=== PATIENT | female | born 1955 | race Caucasian/White ===

== ENCOUNTER 2017-09-20 15:04 | Observation (INO) | payer OTHER, SELFPAY ==
[2017-09-20] VITALS (9 sets, daily range): BP systolic 115–154; BP diastolic 64–83; PULSE 64–79; RESP 15–20; TEMP 36.2–36.8; O2SAT 95–99; BMI 32.5; BMI 30.3
--- NOTE | 2017-09-20 15:23 | EKG12_ITS ---
Test Reason : CP/PALPS Blood Pressure : / mmHG Vent. Rate : 071 BPM Atrial Rate : 071 BPM P-R Int : 214 ms QRS Dur : 096 ms QT Int : 400 ms P-R-T Axes : 023 -24 -21 degrees QTc Int : 434 ms Sinus rhythm with 1st degree A-V block Otherwise normal ECG Confirmed by KARLY VITAL, SHENA ([id number]), material expeditor ELLE LYNNE ([id number] on 09/22/2017 1:55:33 PM Referred By: SHARMILA
--- NOTE | 2017-09-20 15:30 | RAD_ITS ---
STUDY: X-RAY CHEST REASON FOR EXAM: Female, 61 years old. Palpitations. Chest pressure and chest pain. TECHNIQUE: Single AP portable view of the chest. COMPARISON: None. FINDINGS: The lungs are clear and expanded. There is no demonstrated pleural abnormality. Normal size heart. Normal mediastinum and sebas. Normal visualized pulmonary arteries. There is atherosclerotic tortuosity of the aortic arch and descending thoracic aorta. Normal visualized thoracic spine. Normal visualized ribs, clavicles, and shoulders. There is no demonstrated abnormality of the visualized soft tissue structures of the upper abdomen. RAD/Chest 1 View (Portable) IMPRESSION: No acute abnormality is seen. Electronically Signed: Waylon Ahmadi MD at 15:45 EST Tel [phone], Service support ,
[2017-09-20] MEDS: Aspirin 81 MG TAB.CHEW 324 MG PO (15:38)
[2017-09-20 15:53] LABS: Absolute Lymphocyte Count 2.38 X10^3/ul (0.83-4.51); Absolute Neutrophil Count 3.4 X10^3/uL (2.0-7.7); Basophil# 0.01 X10^3/uL; Basophil% 0.2 % (0-1); Eosinophil# 0.17 X10^3/uL; Eosinophils% 2.6 % (0-5); Hematocrit 41.1 % (37-47); Hemoglobin 13.5 g/dl (12.0-15.0); Lymphocyte # 2.38 X10^3/ul (4.0); Lymphocyte % 36.9 % (19-41); Mean Corp Hgb Conc 32.8 g/gl (32-36); Mean Corpuscular Hgb 29.7 pg (27.0-32.0); Mean Corpuscular Volume 90.3 fL (81-99); Mean Platelet Vol. 9.6 fl (6.2-12.0); Monocyte# 0.47 X10^3/uL; Monocyte% 7.3 % (0-10); Neutrophil # 3.41 X10^3/uL (2.7-7.7); Neutrophil % 52.8 % (47-70); POSITIVE COUNT NO; POSITIVE DIFFERENTIAL NO; POSITIVE MORPHOLOGY NO; Platelet Count 282 K/mm3 (150-450); RBC Distribution Width SD 45.9 fl (35.1-43.9); Red Blood Count 4.55 M/mm3 (4.2-5.4); White Blood Count 6.5 K/mm3 (4.4-11.0)
--- NOTE | 2017-09-20 16:11 | ED.DCSUM_ITS ---
- ER Visit Summary Date of Service: 09/20/17 Chief Complaint: abnormal EKG History of Present Illness: The patient is a 61 F presents from PCP office with concern of EKG changes. She states she has been having intermittent episodes of chest pressure since Wednesday. She denies dyspnea, diaphoresis. She has multiple cardiac risk factors including borderline diabetes, hypertension, hyperlipidemia, family history of early heart disease, former smoker. She denies PE/DVT risk factors. Physical Examination: Vitals are stable. Patient is afebrile. Alert no acute distress. HEENT exam is unremarkable. Neck is supple. Lungs are clear and equal bilaterally. Heart is regular rate and rhythm. Abdomen is soft nontender nondistended. Extremities are unremarkable. Skin is warm and dry. No focal neurologic deficit. Remainder of exam is unremarkable. Emergency Department Course and Treatment: She was given aspirin on arrival. She is pain-free in the emergency department. EKG is sinus rhythm rate of 71 with T-wave inversion V3 and V4 which is similar to previous. Chest x-ray shows no acute process. CBC, chemistries unremarkable. Troponin is negative. Patient remains pain-free in the emergency department. Discussed with the hospitalist for observation. Disposition: Observation Impression: Chest pain This note was generated with [employer] dictation software. It may contain incorrect words, spelling, and punctuation that were not noted in review of the chart prior to signing ED Disposition - Plan for ED Patient: Chief Complaint: Chest Pain Referrals: Care Physician,No Primary [Primary Care Provider] -
[2017-09-20 16:24] LABS: Anion Gap 7 (5-15); BUN 17 mg/dL (7-18); BUN/Creat Ratio 21.7 RATIO (10-20); Calcium,Total 9.3 mg/dL (8.5-10.1); Chloride 104 mmol/L (98-107); Creatinine, Serum 0.78 mg/dL (0.55-1.02); EST Glomerular Filtration Rate 79 mL/min (>60); Est Glom Filt Rate - Afr Amer 96 mL/min (>60); Estimated Creatinine Clearance 67.29 ml/min; Glucose 99 mg/dL (74-106); Potassium 3.8 mmol/L (3.5-5.1); Sodium Level 139 mmol/L (136-145)
--- NOTE | 2017-09-20 17:42 | PCM.HP.STD ---
<Jim Welch - Last Filed: 09/20/17 17:42> Problem List (1) Chest pressure Status: Acute (2) HTN (hypertension) Status: Chronic (3) Anxiety Status: Chronic (4) Essential tremor Status: Chronic (5) GERD (gastroesophageal reflux disease) Status: Chronic (6) HLD (hyperlipidemia) Status: Chronic History of Present Illness Date of Admission: 09/20/17 Chief Complaint: Chest pressure The patient is a 61 year old F with a hx of HTN, HLD, anxiety, essential tremor, and acid reflux who presents to the ED with chief complaint of chest pressure. She first noticed this on wednesday morning when she woke up. She described it as a midsternal chest pressure that would come and go throughout the day and each time it would last only a few minutes. She also described a sensation of palpitations when these episodes come on, and she would feel hot flashes, however she denies diaphoresis, nausea, vomiting, or radiation. She did note that the pressure would be relieved by lifting up her breasts. The symptoms had resolved last night, however she was very anxious and went to her PCP today and had an EKG with nonspecific t wave changes so she was sent to the ER. In the ER she has nonspecific changes, negative troponin, negative CXR, and elevated blood pressure. She has no prior hx of heart disease, no stents. She has not had a stress test in many years. She does not think that she can do a treadmill stress test as she has chronic back pain that is severe with exertion. [] Past Medical History Past Medical History (Chronic Problems): Chronic Problems HTN (hypertension) (Chronic) Anxiety (Chronic) Essential tremor (Chronic) GERD (gastroesophageal reflux disease) (Chronic) HLD (hyperlipidemia) (Chronic) Allergies codeine Adverse Reaction (Verified 09/20/17 15:12) Other STEROIDS Adverse Reaction (Uncoded 09/20/17 15:12) Other Home Medications: Ambulatory Orders Medication Instructions Recorded ALPRAZolam [Xanax] 0.25 mg PO TID PRN PRN 09/20/17 Celecoxib [Celebrex] 200 mg PO DAILY PRN PRN 09/20/17 Cholecalciferol (VIT D3) [Vitamin 1,000 unit PO BID 09/20/17 D] Famotidine [Pepcid] 20 mg PO BID 09/20/17 Fish Oil/[place]-3/E/FA/B6-B12 1 each PO BID 09/20/17 [Cardiovid Plus Softgel] Hydrochlorothiazide [Hctz] 12.5 mg PO DAILY 09/20/17 Metoprolol Tartrate [Lopressor 25 mg PO BID 09/20/17 (Beta Aric)] Rosuvastatin Calcium [Crestor] 1 tab PO MOWEFR 09/20/17 Sertraline HCl [Zoloft] 25 mg PO DAILY 09/20/17 Ubidecarenone/Vit E Acetate [Co 1 each PO MOWEFR 09/20/17 Q-10 100 mg Softgel] Vitamin E 400 units PO DAILY 09/20/17 Psychiatric History: Anxiety [employer] History: No pertinent [employer] history Lives: Spouse/ Significant Other Smoking Status: Former smoker Tobacco Use: Non-smoker Alcohol: None Drugs: None - *Family History Maternal History Items: Heart Disease - she may have had an [place], she is not sure Paternal History Items: Heart Disease, Stroke Sibling History Items: Heart Disease - [place], - - pulmonary fibrosis Review of Systems Constitutional: Denies: Chills, Fever, Weight Change HEENT: Denies: Head Aches, Sinus Congestion, Sinus Drainage Cardiovascular: Reports: Chest Pain, Chest Pressure, Palpitations. Denies: Chest Tightness, Edema, Heaviness, Light Headedness, Orthopnea, Paroxysmal Noc. Dyspnea, Syncope Respiratory: Denies: Cough, Pleuritic Pain, Shortness of Breath, Shortness of breath at rest, Shortness of breath upon exertion, Sputum production, Wheezing Gastrointestinal: Denies: Abdominal Pain, Diarrhea, Nausea, Vomiting Genitourinary: Denies: Dysuria Musculoskeletal: Reports: Back Pain. Denies: Joint Pain, Joint Tenderness Skin: Denies: Lesions, Rash, Wounds Neurological: Denies: Numbness, Tingling, Focal weakness Psychiatric: Reports: Anxiety. Denies: Depression, Homicidal Ideations, Suicidal Ideations Hematologic/ Lymphatic: Denies: Easy Bruising, Easy Bleeding VTE Information - Inpt Only VTE Present on Admission: No VTE Mechan Device Prophylaxis: SCD's VTE Pharm Prophylaxis ordered?: Yes Patient Problems: Active and Suspected Problems Chest pressure (Acute) - Physical Exam General: Alert, Oriented x3, Cooperative HEENT: Atraumatic, PERRLA, EOMI, Normocephalic Neck: Supple, No JVD, Negative Carotid Bruits Lungs: Clear to auscultation, Normal air movement Cardiovascular: Regular rate, No murmurs Abdomen: Bowel Sounds Present, Soft, Non Tender Extremities: No edema, Capillary Refill Less than 3 Seconds Skin: No rashes, No breakdown Musculoskeletal: No Tenderness to Palpation of Joints or Extremities Neurological: Cranial nerves II-XII grossly intact Psych/Mental Status: Normal Affect, Appropriate, Alert and oriented to time, place, person, mood and affect Vital Signs Temp Pulse Resp BP Pulse Ox 98.2 F 67 15 152/83 H 97 09/20/17 15:05 09/20/17 17:19 09/20/17 17:19 09/20/17 17:19 09/20/17 17:19 Oxygen Delivery Method Room Air Assessment/Plan Active and Suspected Problems Chest pressure (Acute) 1. Atypical chest pain / pressure - midsternal, with associated hot flashes, and palpitations,relieved by relieving weight of breasts. Intermittent x 3 days lasting several minutes at a time. Pt with significant anxiety. Nonspecific t wave changes on EKG. Risk factors include age, htn, hld, + family hx, prior smoker. CXR, trop, blood work normal. Will matinatin on telemetry, cycle enzymes, repeat EKG in AM, check TSH, and get chemical stress test in AM. 2. HTN - trend, may need home meds adjusted 3. HLD - continue statin 4. Reports that she monitors her blood sugar for borderline diabetes, but has never been diagnosed with DM, and that her blood sugar nonfasting in low 100's and drops low at home. Glucose 99 in ER. Will defer further workup. 5. Anxiety - continue home meds 6. Essential Tremor - reports prescribed xanax for this. DVT ppx: lovenox This patient was seen by Jim Welch PA-C under the supervision of Doctor Malik. <Sheldon Gan - Last Filed: 09/20/17 22:12> History of Present Illness Seen and examined No history of cardiac cath in the past. Patient admitted with midsternal chest pain. She has slipped disc history and not comfortable walking on treadmill. [] Past Medical History Allergies codeine Adverse Reaction (Verified 09/20/17 15:12) Other STEROIDS Adverse Reaction (Uncoded 09/20/17 15:12) Other - Physical Exam General: Alert, Oriented x3, Cooperative HEENT: Atraumatic, PERRLA, EOMI, Normocephalic Neck: Supple, No JVD, Negative Carotid Bruits Lungs: Clear to auscultation, Normal air movement Cardiovascular: Regular rate, Regular Rhythm, Normal S1, Normal S2, No murmurs Abdomen: Non Tender Extremities: No edema, Capillary Refill Less than 3 Seconds Skin: No rashes, No breakdown Musculoskeletal: No Tenderness to Palpation of Joints or Extremities, Arthritic Changes Neurological: Cranial nerves II-XII grossly intact Psych/Mental Status: Normal Affect, Appropriate Vital Signs Temp Pulse Resp BP Pulse Ox 97.9 F 79 16 115/64 95 09/20/17 20:42 09/20/17 21:25 09/20/17 20:42 09/20/17 20:42 09/20/17 20:42 Oxygen Delivery Method Room Air Weight: 193 lb 9.6 oz Body Mass Index (BMI) 30.3 Laboratory Tests Past 24 Hrs 09/20/17 20:12 Troponin I < 0.02 TSH 1.85 Assessment/Plan This patient was seen in conjunction with Jim COLEY. I have independently interviewed and examined the patient and reviewed pertinent history, examination findings, laboratory and plan of management. I have reviewed the note and agree with the documented findings with the few additional points. In brief, patient is admitted for atypical chest pain. Started on ACS protocol. Lexiscan stress test tomorrow morning if troponins are negative. I have discussed my assessment with Jim COLEY and orders have been reviewed. Code Visit OBSV E&M: 64421 Initial observation care L3
--- NOTE | 2017-09-20 17:52 | HP.PCM_ITS ---
<Jim Welch - Last Filed: 09/20/17 17:42> Problem List (1) Chest pressure Status: Acute (2) HTN (hypertension) Status: Chronic (3) Anxiety Status: Chronic (4) Essential tremor Status: Chronic (5) GERD (gastroesophageal reflux disease) Status: Chronic (6) HLD (hyperlipidemia) Status: Chronic History of Present Illness Date of Admission: 09/20/17 Chief Complaint: Chest pressure The patient is a 61 year old F with a hx of HTN, HLD, anxiety, essential tremor , and acid reflux who presents to the ED with chief complaint of chest pressure. She first noticed this on wednesday morning when she woke up. She described it as a midsternal chest pressure that would come and go throughout the day and each time it would last only a few minutes. She also described a sensation of palpitations when these episodes come on, and she would feel hot flashes, however she denies diaphoresis, nausea, vomiting, or radiation. She did note that the pressure would be relieved by lifting up her breasts. The symptoms had resolved last night, however she was very anxious and went to her PCP today and had an EKG with nonspecific t wave changes so she was sent to the ER. In the ER she has nonspecific changes, negative troponin, negative CXR, and elevated blood pressure. She has no prior hx of heart disease, no stents. She has not had a stress test in many years. She does not think that she can do a treadmill stress test as she has chronic back pain that is severe with exertion. [] Past Medical History Past Medical History (Chronic Problems): Chronic Problems HTN (hypertension) (Chronic) Anxiety (Chronic) Essential tremor (Chronic) GERD (gastroesophageal reflux disease) (Chronic) HLD (hyperlipidemia) (Chronic) Allergies codeine Adverse Reaction (Verified 09/20/17 15:12) Other STEROIDS Adverse Reaction (Uncoded 09/20/17 15:12) Other Home Medications: Ambulatory Orders Medication Instructions Recorded ALPRAZolam [Xanax] 0.25 mg PO TID PRN PRN 09/20/17 Celecoxib [Celebrex] 200 mg PO DAILY PRN PRN 09/20/17 Cholecalciferol (VIT D3) [Vitamin 1,000 unit PO BID 09/20/17 D] Famotidine [Pepcid] 20 mg PO BID 09/20/17 Fish Oil/[place]-3/E/FA/B6-B12 1 each PO BID 09/20/17 [Cardiovid Plus Softgel] Hydrochlorothiazide [Hctz] 12.5 mg PO DAILY 09/20/17 Metoprolol Tartrate [Lopressor 25 mg PO BID 09/20/17 (Beta Aric)] Rosuvastatin Calcium [Crestor] 1 tab PO MOWEFR 09/20/17 Sertraline HCl [Zoloft] 25 mg PO DAILY 09/20/17 Ubidecarenone/Vit E Acetate [Co 1 each PO MOWEFR 09/20/17 Q-10 100 mg Softgel] Vitamin E 400 units PO DAILY 09/20/17 Psychiatric History: Anxiety [employer] History: No pertinent [employer] history Lives: Spouse/ Significant Other Smoking Status: Former smoker Tobacco Use: Non-smoker Alcohol: None Drugs: None - *Family History Maternal History Items: Heart Disease - she may have had an [place], she is not sure Paternal History Items: Heart Disease, Stroke Sibling History Items: Heart Disease - [place], - - pulmonary fibrosis Review of Systems Constitutional: Denies: Chills, Fever, Weight Change HEENT: Denies: Head Aches, Sinus Congestion, Sinus Drainage Cardiovascular: Reports: Chest Pain, Chest Pressure, Palpitations. Denies: Chest Tightness, Edema, Heaviness, Light Headedness, Orthopnea, Paroxysmal Noc. Dyspnea, Syncope Respiratory: Denies: Cough, Pleuritic Pain, Shortness of Breath, Shortness of breath at rest, Shortness of breath upon exertion, Sputum production, Wheezing Gastrointestinal: Denies: Abdominal Pain, Diarrhea, Nausea, Vomiting Genitourinary: Denies: Dysuria Musculoskeletal: Reports: Back Pain. Denies: Joint Pain, Joint Tenderness Skin: Denies: Lesions, Rash, Wounds Neurological: Denies: Numbness, Tingling, Focal weakness Psychiatric: Reports: Anxiety. Denies: Depression, Homicidal Ideations, Suicidal Ideations Hematologic/ Lymphatic: Denies: Easy Bruising, Easy Bleeding VTE Information - Inpt Only VTE Present on Admission: No VTE Mechan Device Prophylaxis: SCD's VTE Pharm Prophylaxis ordered?: Yes Patient Problems: Active and Suspected Problems Chest pressure (Acute) - Physical Exam General: Alert, Oriented x3, Cooperative HEENT: Atraumatic, PERRLA, EOMI, Normocephalic Neck: Supple, No JVD, Negative Carotid Bruits Lungs: Clear to auscultation, Normal air movement Cardiovascular: Regular rate, No murmurs Abdomen: Bowel Sounds Present, Soft, Non Tender Extremities: No edema, Capillary Refill Less than 3 Seconds Skin: No rashes, No breakdown Musculoskeletal: No Tenderness to Palpation of Joints or Extremities Neurological: Cranial nerves II-XII grossly intact Psych/Mental Status: Normal Affect, Appropriate, Alert and oriented to time, place, person, mood and affect Vital Signs Temp Pulse Resp BP Pulse Ox 98.2 F 67 15 152/83 H 97 09/20/17 15:05 09/20/17 17:19 09/20/17 17:19 09/20/17 17:19 09/20/17 17:19 Oxygen Delivery Method Room Air Assessment/Plan Active and Suspected Problems Chest pressure (Acute) 1. Atypical chest pain / pressure - midsternal, with associated hot flashes, and palpitations,relieved by relieving weight of breasts. Intermittent x 3 days lasting several minutes at a time. Pt with significant anxiety. Nonspecific t wave changes on EKG. Risk factors include age, htn, hld, + family hx, prior smoker. CXR, trop, blood work normal. Will matinatin on telemetry, cycle enzymes , repeat EKG in AM, check TSH, and get chemical stress test in AM. 2. HTN - trend, may need home meds adjusted 3. HLD - continue statin 4. Reports that she monitors her blood sugar for borderline diabetes, but has never been diagnosed with DM, and that her blood sugar nonfasting in low 100's and drops low at home. Glucose 99 in ER. Will defer further workup. 5. Anxiety - continue home meds 6. Essential Tremor - reports prescribed xanax for this. DVT ppx: lovenox This patient was seen by Jim Welch PA-C under the supervision of Doctor Malik. <Sheldon Gan - Last Filed: 09/20/17 22:12> History of Present Illness Seen and examined No history of cardiac cath in the past. Patient admitted with midsternal chest pain. She has slipped disc history and not comfortable walking on treadmill. [ ] Past Medical History Allergies codeine Adverse Reaction (Verified 09/20/17 15:12) Other STEROIDS Adverse Reaction (Uncoded 09/20/17 15:12) Other - Physical Exam General: Alert, Oriented x3, Cooperative HEENT: Atraumatic, PERRLA, EOMI, Normocephalic Neck: Supple, No JVD, Negative Carotid Bruits Lungs: Clear to auscultation, Normal air movement Cardiovascular: Regular rate, Regular Rhythm, Normal S1, Normal S2, No murmurs Abdomen: Non Tender Extremities: No edema, Capillary Refill Less than 3 Seconds Skin: No rashes, No breakdown Musculoskeletal: No Tenderness to Palpation of Joints or Extremities, Arthritic Changes Neurological: Cranial nerves II-XII grossly intact Psych/Mental Status: Normal Affect, Appropriate Vital Signs Temp Pulse Resp BP Pulse Ox 97.9 F 79 16 115/64 95 09/20/17 20:42 09/20/17 21:25 09/20/17 20:42 09/20/17 20:42 09/20/17 20:42 Oxygen Delivery Method Room Air Weight: 193 lb 9.6 oz Body Mass Index (BMI) 30.3 Laboratory Tests Past 24 Hrs 09/20/17 20:12 Troponin I < 0.02 TSH 1.85 Assessment/Plan This patient was seen in conjunction with Jim COLEY. I have independently interviewed and examined the patient and reviewed pertinent history, examination findings, laboratory and plan of management. I have reviewed the note and agree with the documented findings with the few additional points. In brief, patient is admitted for atypical chest pain. Started on ACS protocol. Lexiscan stress test tomorrow morning if troponins are negative. I have discussed my assessment with Jim COLEY and orders have been reviewed. Code Visit OBSV E&M: 79770 Initial observation care L3
[2017-09-20] MEDS: Metoprolol Tartrate 25 MG Tablet PO (21:25)
[2017-09-20 21:29] LABS: Thyroid Stim Hormone (TSH) 1.85 uIU/mL (0.358-3.74)
[2017-09-20] MEDS: ALPRAZolam 0.25 MG Tablet PO (22:58)
[2017-09-21] VITALS (9 sets, daily range): BP systolic 109–137; BP diastolic 76; PULSE 63–83; RESP 14–18; TEMP 36.4–36.9; O2SAT 94–99
[2017-09-21] MEDS: Aspirin 81 MG TAB.CHEW PO (05:17)
--- NOTE | 2017-09-21 05:55 | EKG12_ITS ---
Test Reason : MORNING EKG Blood Pressure : / mmHG Vent. Rate : 062 BPM Atrial Rate : 062 BPM P-R Int : 232 ms QRS Dur : 100 ms QT Int : 418 ms P-R-T Axes : 063 -11 -22 degrees QTc Int : 424 ms Sinus rhythm with 1st degree A-V block ST & T wave abnormality, consider anterior ischemia Abnormal ECG When compared with ECG of 20-SEP-2017 15:11, MANUAL COMPARISON REQUIRED, DATA IS UNCONFIRMED Confirmed by KARLY VITAL, SHENA ([id number]), loan expeditor ELLE LYNNE ([id number]) on 09/22/2017 2:46:23 PM Referred By: KIET Confirmed By:SHENA BRANDT MD
[2017-09-21 07:40] LABS: International Normalized Ratio 1.1; Prothrombin Time (Protime)PT. 13.4 SECONDS (11.7-14.9)
[2017-09-21 07:41] LABS: Partial Thromboplast Time 32.9 Seconds (24.1-36.2)
[2017-09-21 08:00] LABS: Absolute Lymphocyte Count 2.75 X10^3/ul (0.83-4.51); Absolute Neutrophil Count 2.4 X10^3/uL (2.0-7.7); Basophil# 0.01 X10^3/uL; Basophil% 0.2 % (0-1); Eosinophil# 0.25 X10^3/uL; Eosinophils% 4.2 % (0-5); Hematocrit 40.3 % (37-47); Hemoglobin 13.1 g/dl (12.0-15.0); Lymphocyte # 2.75 X10^3/ul (4.0); Lymphocyte % 46.1 % (19-41); Mean Corp Hgb Conc 32.5 g/gl (32-36); Mean Corpuscular Hgb 29.6 pg (27.0-32.0); Mean Corpuscular Volume 91.2 fL (81-99); Mean Platelet Vol. 10.1 fl (6.2-12.0); Monocyte# 0.51 X10^3/uL; Monocyte% 8.5 % (0-10); Neutrophil # 2.44 X10^3/uL (2.7-7.7); Neutrophil % 40.8 % (47-70); Platelet Count 292 K/mm3 (150-450); RBC Distribution Width SD 46.1 fl (35.1-43.9); Red Blood Count 4.42 M/mm3 (4.2-5.4)
[2017-09-21 08:05] LABS: POSITIVE COUNT NO; POSITIVE DIFFERENTIAL NO; POSITIVE MORPHOLOGY NO
[2017-09-21 08:34] LABS: Anion Gap 8 (5-15); BUN 17 mg/dL (7-18); BUN/Creat Ratio 25.9 RATIO (10-20); Calcium,Total 9.1 mg/dL (8.5-10.1); Chloride 106 mmol/L (98-107); Creatinine, Serum 0.66 mg/dL (0.55-1.02); EST Glomerular Filtration Rate 97 mL/min (>60); Est Glom Filt Rate - Afr Amer 117 mL/min (>60); Estimated Creatinine Clearance 85.94 ml/min; Glucose 94 mg/dL (74-106); Potassium 3.9 mmol/L (3.5-5.1); Sodium Level 142 mmol/L (136-145)
[2017-09-21] MEDS: HYDROCHLOROTHIAZIDE 12.5 MG CAPSULE PO (10:44)
[2017-09-21] MEDS: Sertraline 50 MG Tablet 25 MG PO (10:44)
[2017-09-21] MEDS: Metoprolol Tartrate 25 MG Tablet PO (10:44)
--- NOTE | 2017-09-21 11:23 | STRESSREP ---
Stress Test Report Pharmacologic myocardial perfusion stress test. 61-year-old lady with a history of chest pain. Stress protocol: Resting EKG demonstrates normal sinus rhythm with rate of 75 bpm. Resting blood pressure is 126/84 minute meters of mercury. 0.4 mg of regadenoson was infused per usual protocol followed by rapid intravenous saline flush injection. Continuous EKG monitoring was performed. The patient maintained sinus rhythm throughout the recording the maximum heart rate attained was 110 bpm which was 69% of the maximum predicted heart rate. The resting blood pressure is 126/84 with a final blood pressure 132/74. No clinical angina was noted. No arrhythmias were noted no ST changes were noted to suggest abnormal flow reserve. Myocardial perfusion protocol. 10.3 mCi of technetium 99m sestamibi was injected at rest. 0.4 mg of regadenoson was infused per usual protocol. At peak infusion 31.7 mCi of technetium 99m sestamibi was injected. Stress images were obtained. Stress and rest images were reconstructed and compared in the short axis vertical long and horizontal long axis. Gated images were also obtained. Perfusion SPECT analysis: Review of the stress images demonstrate normal uptake of tracer noted in all areas of the myocardium. The resting images similarly demonstrate normal uptake of tracer noted in all areas of the myocardium. No areas of reversibility are noted suggest ischemia no previous infarct is noted. Gated SPECT analysis. Gated ejection fraction is noted to be 84%. Conclusion: Normal pharmacologic myocardial perfusion stress test. Preserved ejection fraction.
--- NOTE | 2017-09-21 11:55 | DCINST_ITS ---
- Discharge Diagnoses Current Active Problems: Current Active and Chronic Problems HTN (hypertension) (Chronic) Anxiety (Chronic) Essential tremor (Chronic) Chest pressure (Acute) GERD (gastroesophageal reflux disease) (Chronic) HLD (hyperlipidemia) (Chronic) You will use the following diet at home:: Cardiac Your food should be the consistency of: Regular Your liquids should be the consistency of: Regular/Thin Discharge Activity: Return to Normal Activity Allergies/Adverse Reactions: Allergies codeine Adverse Reaction (Verified 09/20/17 15:12) Other STEROIDS Adverse Reaction (Uncoded 09/20/17 15:12) Other Medications to take at Discharge ALPRAZolam [Xanax] 0.25 mg PO TID PRN PRN 09/20/17 Celecoxib [Celebrex] 200 mg PO DAILY PRN PRN 09/20/17 Cholecalciferol (VIT D3) [Vitamin D3] 1,000 unit PO BID 09/20/17 Famotidine [Pepcid] 20 mg PO BID 09/20/17 Fish Oil/[place]-3/E/FA/B6-B12 [Cardiovid Plus Softgel] 1 each PO BID 09/20/17 Hydrochlorothiazide [Hctz] 12.5 mg PO DAILY 09/20/17 Metoprolol Tartrate [Lopressor (beta megan)] 25 mg PO BID 09/20/17 Rosuvastatin Calcium [Crestor] 1 tab PO MOWEFR 09/20/17 Sertraline HCl [Zoloft] 25 mg PO DAILY 09/20/17 Ubidecarenone/Vit E Acetate [Co Q-10 100 mg Softgel] 1 each PO MOWEFR 09/20/17 Vitamin E 400 units PO DAILY 09/20/17 Primary Care Physician: Care Physician,No Primary [Primary Care Provider] - Please follow up with your Primary Care Physician in: 1-2 weeks Proposed Discharge Date: 09/21/17
--- NOTE | 2017-09-21 12:50 | PCM.DC.SUM ---
Discharge Date and Diagnosis - Problem List Patient Problems: Active and Suspected Problems Chest pressure (Acute) Date of Admission: 09/20/17 Date of Discharge: 09/21/17 - Primary Discharge Diagnosis Active and Suspected Problems Chest pressure (Acute) - musculoskeletal Anxiety HTN Essential tremor HLD GERD - Secondary Discharge Diagnosis Chronic Problems HTN (hypertension) (Chronic) Anxiety (Chronic) Essential tremor (Chronic) GERD (gastroesophageal reflux disease) (Chronic) HLD (hyperlipidemia) (Chronic) Hospital Course and Treatment Imaging Results: RAD/Chest 1 View (Portable) IMPRESSION: No acute abnormality is seen. 09/21/17 05:55 Nuclear Stress Test - Chemical [NM] AM (NON MEDS) - negative for ischemia Operations: None Procedures: None, Stress test Summary of Care Provided: Physical exam on day of discharge: General: Resting comfortably NAD Psych: A/Ox3 normal affect HEENT: PEARRLA AT NC Neck: Supple NT CV: RRR no m/t/r/g/h Resp: CTA Abd: [id number] Soft NT no guarding or rigidity Ext: DP2+= no edema Skin: W/D normal turgor Lymph/Heme: No active bleeding or adenopathy Neuro: CN2-12 intact Hospital course: The patient is a 61 year old F who presented to the emergency room after having 3 days of off and on chest pressure in the midsternal region that was alleviated by taking pressure off her breasts. Is associated with some palpitations. Episodes would last several minutes before spontaneously resolving. She presented to her PCPs office who did an EKG with some nonspecific T-wave abnormality so she was sent to the ER. In the ER her EKG continued to have nonspecific changes, troponin was normal, chest x-ray was normal, she had somewhat elevated blood pressure otherwise normal vital signs. She is admitted to the hospital for chest pain workup. Repeat EKG was negative, no events on the monitor, troponin remained negative, stress test the following day was negative. Blood pressure improved without further intervention. She had no further chest pain and it was felt to be musculoskeletal in origin. No changes were made to her medications at this time. She was discharged home in stable condition and advised follow-up with her PCP in 1-2 weeks. This patient was seen by Jim Welch PA-C under the supervision of Doctor Stoddard. [] Discharge Diet: Low fat/ Low Cholesterol, 4000 mg Sodium Diet Discharge Activity: Return to Normal Activity Home Medications: Medications to take at Discharge ALPRAZolam [Xanax] 0.25 mg PO TID PRN PRN 09/20/17 Celecoxib [Celebrex] 200 mg PO DAILY PRN PRN 09/20/17 Cholecalciferol (VIT D3) [Vitamin D3] 1,000 unit PO BID 09/20/17 Famotidine [Pepcid] 20 mg PO BID 09/20/17 Fish Oil/[place]-3/E/FA/B6-B12 [Cardiovid Plus Softgel] 1 each PO BID 09/20/17 Hydrochlorothiazide [Hctz] 12.5 mg PO DAILY 09/20/17 Metoprolol Tartrate [Lopressor (beta megan)] 25 mg PO BID 09/20/17 Rosuvastatin Calcium [Crestor] 1 tab PO MOWEFR 09/20/17 Sertraline HCl [Zoloft] 25 mg PO DAILY 09/20/17 Ubidecarenone/Vit E Acetate [Co Q-10 100 mg Softgel] 1 each PO MOWEFR 09/20/17 Vitamin E 400 units PO DAILY 09/20/17 Primary Care Physician: Care Physician,No Primary [Primary Care Provider] - Please follow up with your Primary Care Physician in: 1-2 weeks Disposition: Home Minutes spent on discharge:: 35 Patient Condition:: Stable Meaningful Use Info Meaningful Use Diagnoses (Choose all that apply): None applicable
--- NOTE | 2017-09-21 12:54 | DS.PCM_ITS ---
Discharge Date and Diagnosis - Problem List Patient Problems: Active and Suspected Problems Chest pressure (Acute) Date of Admission: 09/20/17 Date of Discharge: 09/21/17 - Primary Discharge Diagnosis Active and Suspected Problems Chest pressure (Acute) - musculoskeletal Anxiety HTN Essential tremor HLD GERD - Secondary Discharge Diagnosis Chronic Problems HTN (hypertension) (Chronic) Anxiety (Chronic) Essential tremor (Chronic) GERD (gastroesophageal reflux disease) (Chronic) HLD (hyperlipidemia) (Chronic) Hospital Course and Treatment Imaging Results: RAD/Chest 1 View (Portable) IMPRESSION: No acute abnormality is seen. 09/21/17 05:55 Nuclear Stress Test - Chemical [NM] AM (NON MEDS) - negative for ischemia Operations: None Procedures: None, Stress test Summary of Care Provided: Physical exam on day of discharge: General: Resting comfortably NAD Psych: A/Ox3 normal affect HEENT: [place]ARR[place] AT NC Neck: Supple NT CV: RRR no m/t/r/g/h Resp: CTA Abd: [id number] Soft NT no guarding or rigidity Ext: DP2+= no edema Skin: W/D normal turgor Lymph/Heme: No active bleeding or adenopathy Neuro: CN2-12 intact Hospital course: The patient is a 61 year old F who presented to the emergency room after having 3 days of off and on chest pressure in the midsternal region that was alleviated by taking pressure off her breasts. Is associated with some palpitations. Episodes would last several minutes before spontaneously resolving. She presented to her PCPs office who did an EKG with some nonspecific T-wave abnormality so she was sent to the ER. In the ER her EKG continued to have nonspecific changes, troponin was normal, chest x-ray was normal, she had somewhat elevated blood pressure otherwise normal vital signs. She is admitted to the hospital for chest pain workup. Repeat EKG was negative , no events on the monitor, troponin remained negative, stress test the following day was negative. Blood pressure improved without further intervention. She had no further chest pain and it was felt to be musculoskeletal in origin. No changes were made to her medications at this time. She was discharged home in stable condition and advised follow-up with her PCP in 1-2 weeks. This patient was seen by Jim Welch PA-C under the supervision of Doctor Stoddard. [] Discharge Diet: Low fat/ Low Cholesterol, 4000 mg Sodium Diet Discharge Activity: Return to Normal Activity Home Medications: Medications to take at Discharge ALPRAZolam [Xanax] 0.25 mg PO TID PRN PRN 09/20/17 Celecoxib [Celebrex] 200 mg PO DAILY PRN PRN 09/20/17 Cholecalciferol (VIT D3) [Vitamin D3] 1,000 unit PO BID 09/20/17 Famotidine [Pepcid] 20 mg PO BID 09/20/17 Fish Oil/[place]-3/E/FA/B6-B12 [Cardiovid Plus Softgel] 1 each PO BID 09/20/17 Hydrochlorothiazide [Hctz] 12.5 mg PO DAILY 09/20/17 Metoprolol Tartrate [Lopressor (beta megan)] 25 mg PO BID 09/20/17 Rosuvastatin Calcium [Crestor] 1 tab PO MOWEFR 09/20/17 Sertraline HCl [Zoloft] 25 mg PO DAILY 09/20/17 Ubidecarenone/Vit E Acetate [Co Q-10 100 mg Softgel] 1 each PO MOWEFR 09/20/17 Vitamin E 400 units PO DAILY 09/20/17 Primary Care Physician: Care Physician,No Primary [Primary Care Provider] - Please follow up with your Primary Care Physician in: 1-2 weeks Disposition: Home Minutes spent on discharge:: 35 Patient Condition:: Stable Meaningful Use Info Meaningful Use Diagnoses (Choose all that apply): None applicable
== END 2017-09-21 12:54 | disposition home or self-care (01) ==
LOC: ED 15:56 → PCU 17:18
PROVIDERS: Family Medicine; Physician Assistant; Admitting Provider Internal Medicine; Emergency Provider Emergency Medicine; Visit Provider Internal Medicine
DX: R07.89 Other chest pain (principal); E78.5 Hyperlipidemia, unspecified; K21.9 Gastro-esophageal reflux disease without esophagitis; I10 Essential (primary) hypertension; G25.0 Essential tremor; R73.03 Prediabetes; F41.9 Anxiety disorder, unspecified; Z87.891 Personal history of nicotine dependence; Z82.49 Family history of ischemic heart disease and other diseases of the circulatory system; Z79.899 Other long term (current) drug therapy; R94.31 Abnormal electrocardiogram [ECG] [EKG]
CPT/HCPCS: 36415; 71045; 78452; 80048; 84443; 84484; 85025; 85610; 85730; 93005; 93017; 99218; 99285; A9500; A4216; G0378; J2785

== ENCOUNTER → 2017-12-31 09:39 | Outpatient (CLI) | payer OTHER, SELFPAY ==
--- NOTE | 2017-12-31 09:39 | DT_ITS ---
This patient was seen during an EMR downtime December 27, 2017 - January 03, 2018. This patient may have a combination of paper and electronic documentation or all paper documentation. All documentation is viewable within the e-chart portion of [facility] for each patient visit.
--- NOTE | 2017-12-31 09:42 | BI_ITS ---
MAMMOGRAPHY - BILATERAL SCREENING REASON FOR EXAM: Female, 62 years old. Routine annual screening examination. PERTINENT HISTORY: NO FM HX , GAIN 10#, RT EXC BX LATE , BILAT TENDERNESS TECHNIQUE: Digital bilateral breast keli (3D mammographic acquisition) in the CC and MLO projections. 2-D mediolateral oblique (MLO) and craniocaudad (CC) views of both breasts were obtained. CAD: Full Field Digital Mammography with Computer Added Detection was performed. COMPARISON: None. FINDINGS: Breast Composition: The breasts are heterogeneously dense, which may obscure small masses. There is a spiculated partially obscured mass at the medial aspect of the left breast seen on the CC view, probably located in the medial inferior quadrant, for which further evaluation by ultrasound would be recommended. There are no suspicious calcifications. No other significant abnormalities are identified. BI/SCREENING MAMM (CAD), BILAT IMPRESSION: Further imaging evaluation recommended, as described above. (E) ASSESSMENT CATEGORY: BIRADS Category 0: Incomplete. Need additional imaging evaluation. A letter regarding these results will be sent to the patient by the facility within 30 days. Approximately 10% of breast cancers are not detected by mammography. A normal mammogram should not delay biopsy of a clinically suspicious abnormality. [id number] Electronically Signed: Ifeoma Young MD at 14:24 EDT Tel , Service support ,
== END ==
PROVIDERS: Visit Provider Obstetrics & Gynecology
DX: Z12.31 Encounter for screening mammogram for malignant neoplasm of breast (principal)
CPT/HCPCS: 77063; 77067

== ENCOUNTER → 2018-01-10 08:17 | Outpatient (CLI) | payer OTHER, SELFPAY ==
--- NOTE | 2018-01-10 08:22 | US_ITS ---
STUDY: ULTRASOUND BREAST - LEFT REASON FOR EXAM: Female, 62 years old. Abnormal screening mammogram. TECHNIQUE: Axial and longitudinal images of the LEFT breast were performed with a high resolution ultrasound transducer. COMPARISON: Comparison is made with prior mammogram dated December 31, 2017. FINDINGS: LEFT Breast: There is a 6 mm x 5 mm x 5 mm irregular nodular density at the 6:00 position breast at 1 cm from nipple. There is posterior acoustical shadowing. This corresponds to mammographic abnormality. A biopsy is recommended. US/Breast Limited Unilateral IMPRESSION: There is a 6 mm x 5 mm x 5 mm irregular density with acoustical shadowing at the 6:00 position in the breast at 1 cm from nipple as described. A biopsy is recommended. ASSESSMENT CATEGORY: BIRADS Category 4: Suspicious - Biopsy Should Be Considered. A letter regarding these results will be sent to the patient by the facility within 30 days. Electronically Signed: Waylon Ahmadi MD at 8:49 EDT Tel [phone], Service support ,
== END ==
PROVIDERS: Visit Provider Obstetrics & Gynecology
DX: R92.8 Other abnormal and inconclusive findings on diagnostic imaging of breast (principal)
CPT/HCPCS: 76642

== ENCOUNTER → 2018-01-25 09:20 | Outpatient (CLI) | payer OTHER, SELFPAY ==
--- NOTE | 2018-01-25 09:25 | BI_ITS ---
MAMMOGRAPHY - UNILATERAL DIAGNOSTIC: LEFT BREAST REASON FOR EXAM: Female, 62 years old. Bilateral breast tenderness. Remote excisional breast biopsy. Abnormal screening mammogram and left breast ultrasound. PERTINENT HISTORY: TECHNIQUE: Compression spot views of the left breast in the mediolateral oblique and craniocaudad views were obtained. CAD: Full Field Digital Mammography with Computer Added Detection was performed. COMPARISON: Comparison is made with prior mammogram dated December 31, 2017. FINDINGS: Breast Composition: The breasts are heterogeneously dense, which may obscure small masses. No suspicious abnormality is seen on this examination. No other significant abnormalities are identified. BI/DIAG MAMM W/CAD, UNILAT IMPRESSION: No significant abnormality is seen. ASSESSMENT CATEGORY: BIRADS Category 2: Benign. A letter regarding these results will be sent to the patient by the facility within 30 days. Approximately 10% of breast cancers are not detected by mammography. A normal mammogram should not delay biopsy of a clinically suspicious abnormality. Electronically Signed: Waylon Ahmadi MD at 12:45 EDT Tel [phone], Service support ,
== END ==
PROVIDERS: Visit Provider Surgery
DX: R92.8 Other abnormal and inconclusive findings on diagnostic imaging of breast (principal)
CPT/HCPCS: 77065

== ENCOUNTER → 2019-03-15 | Outpatient (CLI) | payer OTHER, SELFPAY ==
--- NOTE | 2019-03-15 12:43 | BI_ITS ---
MAMMOGRAPHY - BILATERAL SCREENING 3-D TOMOSYNTHESIS REASON FOR EXAM: Female, 63 years old. Bilateral Screening 3-D tomosynthesis PERTINENT HISTORY: No significant family history. TECHNIQUE: 2-D mammograms and 3-D Tomosynthesis of the breast (s) were performed. CAD was performed. COMPARISON: 12/31/2017, 06/03/2016 FINDINGS: The breast composition is heterogeneously dense that can obscure small breast masses. Scattered benign calcifications are seen. No dense spiculated masses or suspicious microcalcifications are identified. No architectural distortion is identified. There is no skin thickening or retraction. There has been no significant change since the prior study. BI/SCREEN MAMM (CAD) W/UMA BILAT IMPRESSION: No mammographic signs of malignancy. Routine yearly mammograms recommended. ASSESSMENT CATEGORY: BIRADS Category 2: Benign. A letter regarding these results will be sent to the patient by the facility within 30 days. FOLLOW UP RECOMMENDATION: Yearly follow up mammogram recommended. (A) Approximately 10% of breast cancers are not detected by mammography. A normal mammogram should not delay biopsy of a clinically suspicious abnormality. Electronically Signed: Rolan Rodgers MD at 16:24 EDT Tel [phone], Service support ,
== END | disposition home or self-care (01) ==
LOC: OPBI 12:42
PROVIDERS: Family Provider Family Medicine; PCP Family Medicine; Referring Provider Obstetrics & Gynecology; Visit Provider Obstetrics & Gynecology
DX: Z12.31 Encounter for screening mammogram for malignant neoplasm of breast (principal)
CPT/HCPCS: 77063; 77067

== ENCOUNTER → 2020-03-19 14:13 | Outpatient (CLI) | payer MEDICARE, SELFPAY ==
[2019-07-03 09:25] VITALS: BMI 30.7
--- NOTE | 2020-03-19 14:16 | BI_ITS ---
MAMMOGRAPHY - BILATERAL SCREENING REASON FOR EXAM: Female, 64 years old. Routine annual screening examination. PERTINENT HISTORY: Non-contributory. TECHNIQUE: Digital bilateral breast uma (3D mammographic acquisition) in the CC and MLO projections. 2-D mediolateral oblique (MLO) and craniocaudad (CC) views of both breasts were obtained. CAD: Full Field Digital Mammography with Computer Added Detection was performed. COMPARISON: Comparison is made with prior study dated 03/15/2019 and 12/31/2017. FINDINGS: Breast Composition: The breasts are heterogeneously dense, which may obscure small masses. There are no dominant masses or suspicious calcifications. Stable scattered macrocalcifications. Stable small benign appearing bilateral axillary lymph nodes. No other significant abnormalities are identified. There has been no significant change since the prior study. BI/SCREEN MAMM (CAD) W/UMA BILAT IMPRESSION: Stable bilateral screening mammogram. Yearly follow-up mammogram recommended. (A) ASSESSMENT CATEGORY: BIRADS Category 2: Benign. A letter regarding these results will be sent to the patient by the facility within 30 days. Approximately 10% of breast cancers are not detected by mammography. A normal mammogram should not delay biopsy of a clinically suspicious abnormality. [id number] Electronically Signed: Waylon Ahmadi, at 15:38 EDT , Service support ,
--- NOTE | 2020-03-19 14:17 | BD_ITS ---
STUDY: DUAL ENERGY X-RAY ABSORPTIOMETRY / DXA REASON FOR EXAM: Female, 64 years old. [employer] -- HX OF SMOKING-QUIT 16-17 YRS AGO -- USES STEROID NASAL SPRAY -- TAKES HCTZ -- TAKES VITAMIN D -- DOES MODERATE AMOUNT OF EXERCISE -- LIBBY OF 1 INCH TECHNIQUE: Bone Mineral Density (BMD) measurements of lumbar spine and bilateral hips were obtained. COMPARISON: None. FINDINGS: Lumbar Spine (L1-L4): g/cm2 (1.184) / T-score (0.2) / Z-score (1.7) Findings are suggestive of normal bone density with a low fracture risk. Left Femur Total: g/cm2 (0.948) / T-score (-0.5) / Z-score (0.7) Left Femoral Neck: g/cm2 (0.896) / T-score (-1.0) / Z-score (0.5) Right Femur Total: g/cm2 (0.928) / T-score (-0.6) / Z-score (0.6) Right Femoral Neck: g/cm2 (0.947) / T-score (-0.7) / Z-score (0.8) BD/DXA BONE DENS W/VERT FX ASMT IMPRESSION: The patient is considered normal as outlined below according to World Barber Organization (WHO) criteria with a low fracture risk. Reference Information: The T-score is the number of standard deviations above or below the standard which is normal for young adults at their peak bone mineral density. The World Health Organization (WHO) interprets the T-scores as follows: Above -1 Normal bone density Between -1 and -2.5 Osteopenia Equal to / or below -2.5 Osteoporosis As a practical clinical guideline, osteopenia may be graded as follows: Mild -1 through -1.5 Moderate -1.6 through -2.0 Severe -2.1 through -2.4 The Z-score is the number of standard deviations above or below age-matched controls. A Z-score of less than -1.5 would be considered abnormal. References: 1. NIH Osteoporosis and Related Bone Diseases http://www.osteo.org 2. International Society for Clinical Densitometry http://www.iscd.org 3. National Osteoporosis Foundation http://www.nof.org Electronically Signed: Waylon Ahmadi, at 13:02 EDT , Service support ,
== END ==
PROVIDERS: PCP Family Medicine; Referring Provider Physician Assistant; Visit Provider Physician Assistant
DX: Z78.0 Asymptomatic menopausal state (principal); Z12.31 Encounter for screening mammogram for malignant neoplasm of breast; Z13.820 Encounter for screening for osteoporosis
CPT/HCPCS: 77063; 77067; 77085

== ENCOUNTER → 2020-07-04 | Outpatient (CLI) | payer MEDICARE, SELFPAY ==
[2020-07-04 09:36] VITALS: BMI 32.1
[2020-07-10 11:53] LABS: HPV APTIMA, High Risk Negative (Negative)
== END | disposition home or self-care (01) ==
LOC: LABSPEC 17:06
PROVIDERS: PCP Family Medicine; Visit Provider Obstetrics & Gynecology
DX: Z12.4 Encounter for screening for malignant neoplasm of cervix (principal)
CPT/HCPCS: 87624; 88175; G0145

== ENCOUNTER → 2021-03-20 10:06 | Outpatient (CLI) | payer MEDICARE, SELFPAY ==
[2020-07-04 09:36] VITALS: BMI 32.1
--- NOTE | 2021-03-20 10:08 | BI_ITS ---
MAMMOGRAPHY - BILATERAL SCREENING REASON FOR EXAM: Female, 65 years old. Routine annual screening examination. PERTINENT HISTORY: Non-contributory. Remote right excisional breast biopsy. TECHNIQUE: Digital bilateral breast uma (3D mammographic acquisition) in the CC and MLO projections. 2-D mediolateral oblique (MLO) and craniocaudad (CC) views of both breasts were obtained. CAD: Full Field Digital Mammography with Computer Added Detection was performed. COMPARISON: Comparison is made with prior examination 03/14/2020 and 03/15/2019 FINDINGS: Breast Composition: The breasts are heterogeneously dense, which may obscure small masses. There are no dominant masses or suspicious calcifications. No other significant abnormalities are identified. There has been no significant change since the prior study. BI/SCRN MAMM (CAD)W/UMA BILAT IMPRESSION: Stable bilateral screening mammogram. Yearly follow-up mammogram recommended. (A) ASSESSMENT CATEGORY: BIRADS Category 1: Negative. A letter regarding these results will be sent to the patient by the facility within 30 days. Approximately 10% of breast cancers are not detected by mammography. A normal mammogram should not delay biopsy of a clinically suspicious abnormality. [id number] Electronically Signed: Waylon Ahmadi MD at 10:57 EDT , Service support ,
== END ==
PROVIDERS: PCP Family Medicine; Referring Provider Obstetrics & Gynecology; Visit Provider Obstetrics & Gynecology
DX: Z12.31 Encounter for screening mammogram for malignant neoplasm of breast (principal)
CPT/HCPCS: 77063; 77067

== ENCOUNTER → 2022-03-24 | Outpatient (CLI) | payer MEDICARE, SELFPAY ==
--- NOTE | 2022-03-24 08:34 | BI_ITS ---
MAMMOGRAPHY - BILATERAL SCREENING REASON FOR EXAM: Female, 66 years old. Routine annual screening examination. PERTINENT HISTORY: Non-contributory. Remote right excisional breast biopsy. TECHNIQUE: Digital bilateral breast uma (3D mammographic acquisition) in the CC and MLO projections. 2-D mediolateral oblique (MLO) and craniocaudad (CC) views of both breasts were obtained. CAD: Full Field Digital Mammography with Computer Added Detection was performed. COMPARISON: Comparison is made with prior study 03/20/2021 and 03/19/2020. FINDINGS: Breast Composition: The breasts are heterogeneously dense, which may obscure small masses. There are no dominant masses or suspicious calcifications. Stable scattered bilateral calcifications. No other significant abnormalities are identified. There has been no significant change since the prior study. BI/SCRN MAMM (CAD)W/UMA BILAT IMPRESSION: Stable bilateral screening mammogram. Yearly follow-up mammogram recommended. (A) ASSESSMENT CATEGORY: BIRADS Category 2: Benign. A letter regarding these results will be sent to the patient by the facility within 30 days. Approximately 10% of breast cancers are not detected by mammography. A normal mammogram should not delay biopsy of a clinically suspicious abnormality. [id number] Electronically Signed: Waylon Ahmadi MD at 10:03 EDT ,
== END | disposition home or self-care (01) ==
LOC: OPBI 08:33
PROVIDERS: PCP Family Medicine; Referring Provider Obstetrics & Gynecology; Visit Provider Obstetrics & Gynecology
DX: Z12.31 Encounter for screening mammogram for malignant neoplasm of breast (principal)
CPT/HCPCS: 77063; 77067

== ENCOUNTER → 2023-03-26 | Outpatient (CLI) | payer MEDICARE, SELFPAY ==
--- NOTE | 2023-03-26 09:11 | BI_ITS ---
MAMMOGRAPHY - BILATERAL SCREENING REASON FOR EXAM: Female, 67 years old. Routine annual screening examination. PERTINENT HISTORY: Non-contributory. Remote right excisional breast biopsy. TECHNIQUE: Digital bilateral breast uma (3D mammographic acquisition) in the CC and MLO projections. 2-D mediolateral oblique (MLO) and craniocaudad (CC) views of both breasts were obtained. CAD: Full Field Digital Mammography with Computer Added Detection was performed. COMPARISON: Comparison is made with prior study March 24, 2022 and March 20, 2021. FINDINGS: Breast Composition: The breasts are heterogeneously dense, which may obscure small masses. There are no dominant masses or suspicious calcifications. Stable appearance of the bilateral macrocalcifications. No other significant abnormalities are identified. There has been no significant change since the prior study. BI/SCRN MAMM (CAD)W/UMA BILAT IMPRESSION: Stable bilateral screening mammogram. Yearly follow-up mammogram recommended. (A) ASSESSMENT CATEGORY: BIRADS Category 2: Benign. A letter regarding these results will be sent to the patient by the facility within 30 days. Approximately 10% of breast cancers are not detected by mammography. A normal mammogram should not delay biopsy of a clinically suspicious abnormality. [id number] Electronically Signed: Waylon Ahmadi MD at 11:21 EDT ,
== END | disposition home or self-care (01) ==
LOC: OPBI 09:08
PROVIDERS: PCP Family Medicine; Referring Provider Obstetrics & Gynecology; Visit Provider Obstetrics & Gynecology
DX: Z12.31 Encounter for screening mammogram for malignant neoplasm of breast (principal)
CPT/HCPCS: 77063; 77067

== ENCOUNTER → 2024-03-29 | Outpatient (CLI) | payer MEDICARE, SELFPAY ==
--- NOTE | 2024-03-29 09:51 | BI_ITS ---
MAMMOGRAPHY - BILATERAL SCREENING REASON FOR EXAM: Female, 68 years old. Routine annual screening examination. PERTINENT HISTORY: Non-contributory. Remote right excisional breast biopsy. TECHNIQUE: Digital bilateral breast uma (3D mammographic acquisition) in the CC and MLO projections. 2-D mediolateral oblique (MLO) and craniocaudad (CC) views of both breasts were obtained. CAD: Full Field Digital Mammography with Computer Added Detection was performed. COMPARISON: Comparison is made with prior study dated March 26, 2023 and March 24, 2022. FINDINGS: Breast Composition: The breasts are heterogeneously dense, which may obscure small masses. There are no dominant masses or suspicious calcifications. Stable appearance of the bilateral macrocalcifications. No other significant abnormalities are identified. There has been no significant change since the prior study. BI/SCRN MAMM (CAD)W/UMA BILAT IMPRESSION: Stable bilateral screening mammogram. Yearly follow-up mammogram recommended. (A) ASSESSMENT CATEGORY: BIRADS Category 2: Benign. A letter regarding these results will be sent to the patient by the facility within 30 days. Approximately 10% of breast cancers are not detected by mammography. A normal mammogram should not delay biopsy of a clinically suspicious abnormality. [id number] Electronically Signed: Waylon Ahmadi MD at 10:54 EDT ,
--- NOTE | 2024-03-29 10:01 | BD_ITS ---
STUDY: DUAL ENERGY X-RAY ABSORPTIOMETRY / DXA REASON FOR EXAM: Female, 68 years old. Estrogen Deficiency TECHNIQUE: Bone Mineral Density (BMD) measurements of lumbar spine and bilateral hips were obtained. COMPARISON: Comparison is made with prior study dated March 19, 2020. FINDINGS: Lumbar Spine (L1-L4): g/cm2 (1.078) / T-score (0.4) / Z-score (2.4) Findings are suggestive of normal bone density with a low fracture risk. Left Femur Total: g/cm2 (0.871) / T-score (-0.6) / Z-score (0.9) Left Femoral Neck: g/cm2 (0.707) / T-score (-1.3) / Z-score (0.5) Right Femur Total: g/cm2 (0.840) / T-score (-0.8) / Z-score (0.6) Right Femoral Neck: g/cm2 (0.706) / T-score (-1.3) / Z-score (0.5) The T-Scores on the most recent prior examination were: Lumbar Spine (L1-L4): There has been worsening of bone density since the previous examination. Left Femur Total: which represents a worsening of 1.4%. Right Femur Total: which represents a worsening of 2.8%. BD/Dexa Bone Density Study IMPRESSION: The patient is considered osteopenic as outlined below according to World Barber Organization (WHO) criteria with a low fracture risk. There has been worsening of bone density since the previous examination. Reference Information: The T-score is the number of standard deviations above or below the standard which is normal for young adults at their peak bone mineral density. The World Health Organization (WHO) interprets the T-scores as follows: Above -1 Normal bone density Between -1 and -2.5 Osteopenia Equal to / or below -2.5 Osteoporosis As a practical clinical guideline, osteopenia may be graded as follows: Mild -1 through -1.5 Moderate -1.6 through -2.0 Severe -2.1 through -2.4 The Z-score is the number of standard deviations above or below age-matched controls. A Z-score of less than -1.5 would be considered abnormal. References: 1. NIH Osteoporosis and Related Bone Diseases www osteo.org 2. International Society for Clinical Densitometry www iscd.org 3. National Osteoporosis Foundation www nof.org Electronically Signed: Waylon Ahmadi MD at 12:42 EDT ,
== END | disposition home or self-care (01) ==
LOC: OPBD 09:49
PROVIDERS: PCP Physician Assistant; Referring Provider Obstetrics & Gynecology; Visit Provider Obstetrics & Gynecology
DX: Z12.31 Encounter for screening mammogram for malignant neoplasm of breast (principal); M81.0 Age-related osteoporosis without current pathological fracture
CPT/HCPCS: 77063; 77067; 77080

== ENCOUNTER → 2024-08-16 | Outpatient (CLI) | payer MEDICARE, SELFPAY ==
[2024-08-18 12:08] LABS: HPV APTIMA, High Risk Negative (Negative)
== END | disposition home or self-care (01) ==
LOC: LABSPEC 10:46
PROVIDERS: PCP Physician Assistant; Referring Provider Nurse Practitioner Family; Visit Provider Nurse Practitioner Family
DX: Z12.4 Encounter for screening for malignant neoplasm of cervix (principal)
CPT/HCPCS: 87624; 88175; G0145

== ENCOUNTER → 2025-03-30 | Outpatient (CLI) | payer MEDICARE, SELFPAY ==
--- NOTE | 2025-03-30 10:15 | BI_ITS ---
EXAM: SCRN MAMM (CAD)W/UMA BILAT DATE: 03/30/2025 CLINICAL HISTORY: F, Age 69 y/o , BREAST CANCER SCREENING TECHNIQUE: Procedure Code: [id number] Modality: MG Procedure: SCRN MAMM (CAD)W/UMA BILAT COMPARISON: Prior exam(s) dated 03/29/2024, 03/26/2023, 03/24/2022. FINDINGS: TISSUE DENSITY: The breasts are heterogeneously dense, which may obscure small masses. The mammogram demonstrates that the patient has dense breasts. Supplemental screening with whole breast ultrasound or MRI may be considered for further evaluation. Bilateral Breast Mammographic Findings: No significant masses, calcifications or other abnormalities are identified. BI/SCRN MAMM (CAD)W/UMA BILAT IMPRESSION: There is no mammographic evidence of malignancy. OVERALL FINAL ASSESSMENT BI-RADS 1: NEGATIVE. RECOMMENDATION: Routine annual follow-up in 1 Year A letter with findings and recommendations will be mailed to the patient. Reading Location: [id number]
== END | disposition home or self-care (01) ==
LOC: OPBI 10:01
PROVIDERS: PCP Obstetrics & Gynecology; Referring Provider Obstetrics & Gynecology; Visit Provider Obstetrics & Gynecology
DX: Z12.31 Encounter for screening mammogram for malignant neoplasm of breast (principal)
CPT/HCPCS: 77063; 77067